=== PATIENT | male | born 1965 | race Hispanic/Latino ===

== ENCOUNTER 2019-09-13 14:32 | Outpatient (CLI) | payer BC ==
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
== END 2019-09-13 14:33 | disposition home or self-care (01) ==
LOC: BICMRI 14:32
PROVIDERS: ATTEND Family Medicine
DX: M23.92 Unspecified internal derangement of left knee (principal); R60.0 Localized edema